=== PATIENT | male | born 1980 | race Caucasian/White ===

== ENCOUNTER 2018-09-22 16:44 | Outpatient (REF) | payer OTHER, SELFPAY ==
[2018-09-22 21:37] LABS: Anion Gap 12.3 mmol/L (3-11); BUN 12 mg/dL (7-18); CO2 25.7 mmol/L (21.0-32.0); CREATININE 0.83 mg/dL (0.70-1.30); Calcium 9.6 mg/dL (8.5-10.1); Chloride 101 mmol/L (98-107); Glucose 154 mg/dL (70-100); Potassium 3.9 mmol/L (3.5-5.1); Sodium 139 mmol/L (136-145)
== END 2018-09-22 17:04 ==
LOC: NCHCN 16:44
PROVIDERS: PCP Family Medicine; Visit Provider Family Medicine
DX: I10 Essential (primary) hypertension (principal)
CPT/HCPCS: 80048

== ENCOUNTER 2019-01-16 09:06 | Outpatient (CLI) | payer OTHER, SELFPAY ==
--- NOTE | 2019-01-16 16:45 | DIABASSESS_ITS ---
DESCRIPTION: Neo Espinosa presents for diabetes self management. He states he has not had self management education in the past; has had diabetes since age of 23. He wishes to eat better and improve his A1c. MEDICATION: Manages with Metformin 2000mg, and Glipizide 10mg which was added 1 month ago. MONITORING: he tests his blood sugars most mornings and occasionally in evening. [id number] and pre-supper 183. He believes his blood sugars are improving since addition of glipizide. 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 He eats supper with his family; last night BBQ chicken with spaghetti salad. He has fruit cup and trail mix between meals. PHYSICAL ACTIVITY: He goes to the gym 2-3 times a week. He has days when he walks and days he is behind the desk. He works 10-14 hour days frequently. STRESS: He admits to high stress and depression. He has asked for help through the clinic and local Mental Health agency, but he has not been able to get to see anyone. He expresses high frustration from this. His states his depression is affecting him daily. INTERVENTION: Neo is here for a basic visit despite his long history of type 2 diabetes at an unusually young age. NUTRITION: Reviewed food guide focused on non-carbohydrate sources, especially vegetables. Discussed portions of carbohydrate sources. He denies frequent hunger. He is aware of foods that increase his blood sugar. PHYSICAL ACTIVITY: encouraged regular PA that he could encorporate in his daily work schedule with goal of 20minutes daily if he doesn't get to the gym. MEDICATION: Reviewed additional oral medications actions, benefits and side effects in addition to insulin if blood sugars are not improved with current regimen. He voices interest in the [id number] (Jardiance) for weight management, blood pressure and blood sugar reduction. He is open to insulin if there is nothing else. STRESS: Discussed sourcing support. Discussed deep breathing as an immediate reliever on the job which he already does. Encouraged him to follow up regarding appointments for support. States there are no private therapists who take his insurance. PREVENTION: Brief review of foot care which he is well informed about. Discussed hypoglycemia risk with new medication; symptoms and treatment. PLAN: He will focus on non-carbohydrate sources of calories with increased vegetables exercise 20 minutes/day consider addition of medication with interest in SGLT2 inhibitor if blood sugars not improved He will pursue efforts to obtain help for depression.
== END 2019-01-16 09:26 ==
PROVIDERS: PCP Family Medicine; Visit Provider Dietitian, Registered
DX: E11.9 Type 2 diabetes mellitus without complications (principal); Z71.3 Dietary counseling and surveillance
CPT/HCPCS: G0108

== ENCOUNTER 2019-07-05 16:32 | Outpatient (REF) | payer OTHER, SELFPAY ==
[2019-07-05 22:01] LABS: ALT 105 U/L (16-63); AST 35 U/L (15-37); Albumin 4.4 g/dL (3.4-5.0); Alkaline Phosphatase 46 U/L (46-116); Anion Gap 11.3 mmol/L (3-11); BUN 12 mg/dL (7-18); Bilirubin, Total 1.5 mg/dL (0.2-1.0); CO2 27.7 mmol/L (21.0-32.0); CREATININE 0.79 mg/dL (0.70-1.30); Calcium 9.2 mg/dL (8.5-10.1); Calculated LDL 61 mg/dL (<100); Chloride 102 mmol/L (98-107); Cholesterol 164 mg/dL (<200); Glucose 158 mg/dL (74-106); HDL Cholesterol 35 mg/dL (40-60); Potassium 3.9 mmol/L (3.5-5.1); Sodium 141 mmol/L (136-145); Total Protein 7.5 g/dL (6.4-8.2); Triglyceride 341 mg/dL (<150)
[2019-07-09 10:42] LABS: HIV-1/2 Ag & Ab Screen Negative (Negative)
[2019-07-09 11:20] LABS: HBs Antibody, Qual Negative (See Note); HBs Antibody, Quant <3.1 mIU/mL (See Note); Hepatitis B Core Antibody Negative (Negative); Hepatitis B surface Ag Negative (Negative); Hepatitis C Ab w Rflx HCV PCR Negative (Negative)
[2019-07-09 13:33] LABS: Syphilis Serology (RPR) Negative (Negative)
== END 2019-07-05 16:52 ==
LOC: NCHCN 16:32
PROVIDERS: PCP Family Medicine; Visit Provider Nurse Practitioner Family
DX: E78.5 Hyperlipidemia, unspecified (principal); I10 Essential (primary) hypertension; Z20.2 Contact with and (suspected) exposure to infections with a predominantly sexual mode of transmission; Z11.3 Encounter for screening for infections with a predominantly sexual mode of transmission; Z11.4 Encounter for screening for human immunodeficiency virus [HIV]
CPT/HCPCS: 80053; 80061; 86704; 86706; 86803; 87340; 87389; 86592

== ENCOUNTER 2019-07-17 08:45 | Outpatient (REF) | payer OTHER, SELFPAY ==
[2019-07-17 22:21] LABS: COMMENT (LAB VIEW ONLY) 97.06 mg/dL; Microalb ug/mg Crea 22.4 ug/mg Cr
== END 2019-07-17 09:05 ==
LOC: NCHCN 08:45
PROVIDERS: PCP Family Medicine; Visit Provider Nurse Practitioner Family
DX: E11.65 Type 2 diabetes mellitus with hyperglycemia (principal)
CPT/HCPCS: 82043; 82570

== ENCOUNTER → 2019-11-06 09:38 | Outpatient (REF) | payer OTHER, SELFPAY ==
[2019-11-06 21:27] LABS: ALT 153 U/L (16-63); AST 55 U/L (15-37); Albumin 4.3 g/dL (3.4-5.0); Alkaline Phosphatase 41 U/L (46-116); Anion Gap 12.4 mmol/L (3-11); BUN 10 mg/dL (7-18); Bilirubin, Total 1.8 mg/dL (0.2-1.0); CO2 24.6 mmol/L (21.0-32.0); CREATININE 0.93 mg/dL (0.70-1.30); Calcium 8.8 mg/dL (8.5-10.1); Chloride 104 mmol/L (98-107); Glucose 212 mg/dL (74-106); Potassium 3.9 mmol/L (3.5-5.1); Sodium 141 mmol/L (136-145); Total Protein 7.4 g/dL (6.4-8.2)
== END ==
LOC: NCHCN 09:38
PROVIDERS: PCP Family Medicine; Visit Provider Nurse Practitioner Family
DX: E11.65 Type 2 diabetes mellitus with hyperglycemia (principal); K76.0 Fatty (change of) liver, not elsewhere classified
CPT/HCPCS: 80053

== ENCOUNTER 2019-12-19 12:45 | Outpatient (REF) | payer OTHER, SELFPAY ==
[2019-12-19 21:10] LABS: ALT 138 U/L (16-63); AST 59 U/L (15-37); Albumin 4.2 g/dL (3.4-5.0); Alkaline Phosphatase 39 U/L (46-116); Anion Gap 11.8 mmol/L (3-11); BUN 8 mg/dL (7-18); Bilirubin, Total 1.8 mg/dL (0.2-1.0); CO2 26.2 mmol/L (21.0-32.0); CREATININE 0.83 mg/dL (0.70-1.30); Calcium 9.1 mg/dL (8.5-10.1); Chloride 101 mmol/L (98-107); Folate 16.7 ng/mL (8.6-20.0); Glucose 224 mg/dL (74-106); Potassium 3.9 mmol/L (3.5-5.1); Sodium 139 mmol/L (136-145); TSH (W/Ref FT4) 1.39 uIU/mL (0.36-3.74); Total Protein 7.2 g/dL (6.4-8.2); Vitamin B12 761 pg/mL (193-986)
[2019-12-21 08:20] LABS: HBs Antibody, Quant <3.1 mIU/mL (See Note); Hepatitis B Surface Ab Negative (See Note)
[2019-12-21 08:28] LABS: Hepatitis B Surface Ag Negative (Negative)
[2019-12-21 09:06] LABS: HIV-1/2 Ag & Ab Screen Negative (Negative)
[2019-12-21 09:31] LABS: Hepatitis C Ab w Rflx HCV PCR Negative (Negative)
[2019-12-21 10:48] LABS: Syphilis Serology (RPR) Negative (Negative)
[2019-12-21 15:28] LABS: Chlamydia Result Negative (Negative); GC Result Negative (Negative)
== END 2019-12-19 13:05 ==
LOC: NCHCN 12:45
PROVIDERS: PCP Family Medicine; Visit Provider Nurse Practitioner Family
DX: Z11.3 Encounter for screening for infections with a predominantly sexual mode of transmission (principal); E11.65 Type 2 diabetes mellitus with hyperglycemia; G62.9 Polyneuropathy, unspecified; K76.0 Fatty (change of) liver, not elsewhere classified
CPT/HCPCS: 80053; 86706; 86803; 87340; 87389; 87491; 87591; 82607; 82746; 84443; 86592

== ENCOUNTER 2020-01-02 09:40 | Outpatient (REF) | payer OTHER, SELFPAY ==
[2020-01-02 20:04] LABS: Anion Gap 11.1 mmol/L (3-11); BUN 17 mg/dL (7-18); CO2 26.9 mmol/L (21.0-32.0); CREATININE 0.81 mg/dL (0.70-1.30); Calcium 9.5 mg/dL (8.5-10.1); Chloride 100 mmol/L (98-107); Glucose 177 mg/dL (74-106); Potassium 3.8 mmol/L (3.5-5.1); Sodium 138 mmol/L (136-145)
== END 2020-01-02 10:00 ==
LOC: NCHCN 09:40
PROVIDERS: PCP Family Medicine; Visit Provider Nurse Practitioner Family
DX: E11.65 Type 2 diabetes mellitus with hyperglycemia (principal); I10 Essential (primary) hypertension
CPT/HCPCS: 80048

== ENCOUNTER 2020-07-24 09:19 | Outpatient (REF) | payer OTHER, SELFPAY ==
[2020-07-24 14:32] LABS: ALT 150 U/L (16-63); AST 54 U/L (15-37); Albumin 4.4 g/dL (3.4-5.0); Alkaline Phosphatase 44 U/L (46-116); Anion Gap 12.6 mmol/L (3-11); BUN 13 mg/dL (7-18); Bilirubin, Total 1.6 mg/dL (0.2-1.0); CO2 26.4 mmol/L (21.0-32.0); CREATININE 0.8 mg/dL (0.70-1.30); Calcium 9.4 mg/dL (8.5-10.1); Calculated LDL 62 mg/dL (<100); Chloride 99 mmol/L (98-107); Cholesterol 145 mg/dL (<200); Glucose 270 mg/dL (74-106); HDL Cholesterol 36 mg/dL (40-60); Potassium 4.3 mmol/L (3.5-5.1); Sodium 138 mmol/L (136-145); Total Protein 7.6 g/dL (6.4-8.2); Triglyceride 238 mg/dL (<150)
[2020-07-24 14:33] LABS: COMMENT (LAB VIEW ONLY) 93.56 mg/dL; Microalb ug/mg Crea 46.9 ug/mg Cr
== END 2020-07-24 09:20 | disposition home or self-care (01) ==
LOC: NCHCN 09:19
PROVIDERS: PCP Family Medicine; Visit Provider Nurse Practitioner Family
DX: E11.65 Type 2 diabetes mellitus with hyperglycemia (principal)
CPT/HCPCS: 80053; 80061; 82043; 82570

== ENCOUNTER 2020-08-25 08:58 | Outpatient (REF) | payer OTHER, SELFPAY ==
[2020-08-25 13:01] LABS: HCT 40.9 % (40.0-50.0); HGB 14.2 g/dL (13.5-17.5); MCH 29.1 pg (27.0-33.0); MCHC 34.7 % (32.0-36.0); MCV 83.8 fL (80-95); MPV 9.9 fL (8.0-11.0); Platelet Count 311 10^3/uL (130-400); RBC 4.88 10^6/uL (4.36-5.78); RDW 12.1 % (11.8-14.1); RDW-SD 36.8 fL; WBC 6.86 10^3/uL (4.4-10.8)
[2020-08-25 13:52] LABS: ALT 120 U/L (16-63); AST 37 U/L (15-37); Albumin 4.3 g/dL (3.4-5.0); Alkaline Phosphatase 44 U/L (46-116); Bilirubin, Total 1.9 mg/dL (0.2-1.0); TSH (W/Ref FT4) 0.85 uIU/mL (0.36-3.74); Total Protein 7.6 g/dL (6.4-8.2)
[2020-08-25 14:00] LABS: Bilirubin, Direct 0.3 mg/dL (0.0-0.2); Lipase 138 U/L (73-393)
== END 2020-08-25 08:59 | disposition home or self-care (01) ==
LOC: NCHCN 08:58
PROVIDERS: PCP Family Medicine; Visit Provider Nurse Practitioner Family
DX: R53.83 Other fatigue (principal); R10.9 Unspecified abdominal pain; R94.5 Abnormal results of liver function studies
CPT/HCPCS: 80076; 83690; 85027; 84443

== ENCOUNTER 2020-12-11 16:16 | Outpatient (REF) | payer OTHER, SELFPAY ==
[2020-12-13 09:34] LABS: HIV-1/2 Ag & Ab Screen Negative (Negative)
[2020-12-15 10:15] LABS: Hepatitis C Ab w Rflx HCV PCR Negative (Negative)
[2020-12-15 11:01] LABS: Syphilis Serology (RPR) Negative (Negative)
[2020-12-15 14:05] LABS: Chlamydia Result Negative (Negative); GC Result Negative (Negative)
[2020-12-16 00:40] LABS: T.vaginalis, Misc, RNA Negative (Negative)
== END 2020-12-11 16:17 | disposition home or self-care (01) ==
LOC: NCHCN 16:16
PROVIDERS: PCP Family Medicine; Visit Provider Nurse Practitioner Family
DX: Z11.3 Encounter for screening for infections with a predominantly sexual mode of transmission (principal); Z13.818 Encounter for screening for other digestive system disorders; Z11.4 Encounter for screening for human immunodeficiency virus [HIV]
CPT/HCPCS: 86803; 87389; 87491; 87591; 87661; 86592

== ENCOUNTER 2021-08-05 18:20 | Outpatient (REF) | payer OTHER, SELFPAY ==
[2021-08-05 21:09] LABS: ALT 72 U/L (16-63); AST 28 U/L (15-37); Albumin 4.3 g/dL (3.4-5.0); Alkaline Phosphatase 49 U/L (46-116); Anion Gap 11.5 mmol/L (3-11); BUN 13 mg/dL (7-18); Bilirubin, Total 1.4 mg/dL (0.2-1.0); CO2 25.5 mmol/L (21.0-32.0); CREATININE 0.9 mg/dL (0.70-1.30); Calculated LDL 111 mg/dL (<100); Chloride 100 mmol/L (98-107); Cholesterol 187 mg/dL (<200); Glucose 189 mg/dL (74-106); HDL Cholesterol 40 mg/dL (40-60); Potassium 3.5 mmol/L (3.5-5.1); Sodium 137 mmol/L (136-145); Total Protein 7.5 g/dL (6.4-8.2); Triglyceride 184 mg/dL (<150)
[2021-08-05 21:18] LABS: Hemoglobin A1C 7.3 % (<5.7)
[2021-08-05 21:25] LABS: COMMENT (LAB VIEW ONLY) 18.87 mg/dL; Microalb ug/mg Crea 39.2 ug/mg Cr
== END 2021-08-05 18:21 | disposition home or self-care (01) ==
LOC: NCHCN 18:20
PROVIDERS: PCP Family Medicine; Visit Provider Registered Nurse
DX: E11.65 Type 2 diabetes mellitus with hyperglycemia (principal); I10 Essential (primary) hypertension; E66.9 Obesity, unspecified
CPT/HCPCS: 80053; 80061; 82043; 82570; 83036

== ENCOUNTER 2021-10-22 10:05 | Outpatient (REF) | payer OTHER, SELFPAY ==
[2021-10-22 14:40] LABS: Bacteria Negative HPF (Negative); C & S Indicated? No; Casts Negative LPF (Negative); Crystals Negative HPF (Negative); Epithelial Cells Rare HPF (Negative); Mucus Negative (Negative); RBC 0-2 HPF (0-2); WBC 0-2 HPF (0-5)
[2021-10-23 14:32] LABS: Chlamydia Result Negative (Negative); GC Result Negative (Negative)
== END 2021-10-22 10:06 | disposition home or self-care (01) ==
LOC: NCHCN 10:05
PROVIDERS: PCP Family Medicine; Visit Provider Nurse Practitioner Family
DX: R30.0 Dysuria (principal); Z11.3 Encounter for screening for infections with a predominantly sexual mode of transmission
CPT/HCPCS: 87491; 87591; 81015

== ENCOUNTER 2023-01-07 08:28 | Outpatient (REF) | payer BC, SELFPAY ==
[2023-01-06 16:39] LABS: COMMENT (LAB VIEW ONLY) 80.84 mg/dL; Microalb ug/mg Crea 79.3 ug/mg Cr
[2023-01-06 16:53] LABS: ALT 96 U/L (16-63); AST 40 U/L (15-37); Albumin 4.7 g/dL (3.4-5.0); Alkaline Phosphatase 55 U/L (46-116); Anion Gap 12.1 mmol/L (3-11); BUN 13 mg/dL (7-18); Bilirubin, Total 1.5 mg/dL (0.2-1.0); CO2 24.9 mmol/L (21.0-32.0); CREATININE 1.1 mg/dL (0.70-1.30); Calcium 9.6 mg/dL (8.5-10.1); Calculated LDL 113 mg/dL (<100); Chloride 98 mmol/L (98-107); Cholesterol 226 mg/dL (<200); Estimated GFR 84.89 (mL/min/1.73m2); Glucose 350 mg/dL (74-106); HDL Cholesterol 36 mg/dL (40-60); Potassium 4.1 mmol/L (3.5-5.1); Sodium 135 mmol/L (136-145); Total Protein 8.6 g/dL (6.4-8.2); Triglyceride 388 mg/dL (<150)
== END 2023-01-07 08:29 | disposition home or self-care (01) ==
LOC: NCHCN 08:28
PROVIDERS: PCP Family Medicine; Visit Provider Family Medicine
DX: I10 Essential (primary) hypertension (principal); E78.5 Hyperlipidemia, unspecified; E66.9 Obesity, unspecified; E11.65 Type 2 diabetes mellitus with hyperglycemia
CPT/HCPCS: 80053; 80061; 82043; 82570

== ENCOUNTER 2023-01-12 17:18 | Outpatient (REF) | payer BC, SELFPAY ==
[2023-01-12 16:36] LABS: Abs Immature Grans 0.04 10^3/uL (0.0-0.06); Absolute Basophil Count 0.06 10^3/uL (0.0-0.2); Absolute Eosinophil Count 0.11 10^3/uL (0.0-0.7); Absolute Lymphocyte Count 1.77 10^3/uL (1.2-3.4); Absolute Monocyte Count 0.35 10^3/uL (0.1-0.8); Absolute Neutrophil Count 3.23 10^3/uL (1.2-6.7); Basophils % 1.1; HCT 41.6 % (40.0-50.0); HGB 14.6 g/dL (13.5-17.5); Immature Grans % 0.7; Lymphocytes % 31.8; MCH 29.1 pg (27.0-33.0); MCHC 35.1 % (32.0-36.0); MCV 83 fL (80-95); MPV 10.1 fL (8.0-11.0); Monocytes % 6.3; Neutrophils % 58.1; Platelet Count 323 10^3/uL (130-400); RBC 5.02 10^6/uL (4.36-5.78); RDW 12.6 % (11.8-14.1); WBC 5.56 10^3/uL (4.4-10.8)
[2023-01-12 17:36] LABS: Ferritin 189 ng/mL (26-388)
[2023-01-12 17:41] LABS: Iron 91 ug/dL (65-175); Total Iron Binding Capacity 371 ug/dL (250-450); Transferrin Sat 25 % (20-55)
== END 2023-01-12 17:19 | disposition home or self-care (01) ==
LOC: NCHCN 17:18
PROVIDERS: PCP Family Medicine; Visit Provider Family Medicine
DX: R79.89 Other specified abnormal findings of blood chemistry (principal); K76.0 Fatty (change of) liver, not elsewhere classified
CPT/HCPCS: 82728; 83540; 83550; 85025

== ENCOUNTER 2023-08-11 19:29 | Outpatient (REF) | payer BC, SELFPAY ==
[2023-08-11 15:30] LABS: ALT 52 U/L (16-63); AST 34 U/L (15-37); Albumin 4.5 g/dL (3.4-5.0); Alkaline Phosphatase 47 U/L (46-116); Anion Gap 14.4 mmol/L (3-11); BUN 20 mg/dL (7-18); Bilirubin, Total 1.5 mg/dL (0.2-1.0); CO2 24.6 mmol/L (21.0-32.0); CREATININE 0.9 mg/dL (0.70-1.30); Chloride 102 mmol/L (98-107); Estimated GFR 108.01 (mL/min/1.73m2); Glucose 202 mg/dL (74-106); Hemoglobin A1C 10.4 % (<5.7); Sodium 141 mmol/L (136-145)
== END 2023-08-11 19:30 | disposition home or self-care (01) ==
LOC: NCHCN 19:29
PROVIDERS: PCP Family Medicine; Referring Provider Family Medicine; Visit Provider Family Medicine
DX: E11.65 Type 2 diabetes mellitus with hyperglycemia (principal); K76.0 Fatty (change of) liver, not elsewhere classified; R17 Unspecified jaundice
CPT/HCPCS: 80053; 83036

== ENCOUNTER 2023-09-06 08:48 | Outpatient (REF) | payer BC, SELFPAY ==
[2023-09-06 15:21] LABS: Bilirubin, Direct 0.2 mg/dL (0.0-0.2)
== END 2023-09-06 08:49 | disposition home or self-care (01) ==
LOC: NCHCN 08:48
PROVIDERS: PCP Family Medicine; Visit Provider Family Medicine
DX: R17 Unspecified jaundice (principal); E80.6 Other disorders of bilirubin metabolism
CPT/HCPCS: 82248

== ENCOUNTER 2024-02-17 15:16 | Outpatient (REF) | payer BC, SELFPAY ==
[2024-02-17 21:37] LABS: Abs Immature Grans 0.03 10^3/uL (0.0-0.06); Absolute Basophil Count 0.08 10^3/uL (0.0-0.2); Absolute Eosinophil Count 0.09 10^3/uL (0.0-0.7); Absolute Lymphocyte Count 2.15 10^3/uL (1.2-3.4); Absolute Monocyte Count 0.37 10^3/uL (0.1-0.8); Absolute Neutrophil Count 3.75 10^3/uL (1.2-6.7); Basophils % 1.2 %; Eosinophils % 1.4 %; HGB 14.8 g/dL (13.5-17.5); Immature Grans % 0.5 %; Lymphocytes % 33.2 %; MCH 28.7 pg (27.0-33.0); MCHC 34.4 % (32.0-36.0); MCV 83 fL (80-95); MPV 9.5 fL (8.0-11.0); Monocytes % 5.7 %; Platelet Count 330 10^3/uL (130-400); RBC 5.16 10^6/uL (4.36-5.78); RDW 12.7 % (11.8-14.1); RDW-SD 38.4 fL; WBC 6.47 10^3/uL (4.4-10.8)
[2024-02-17 21:57] LABS: Hemoglobin A1C 9.3 % (<5.7)
[2024-02-17 22:13] LABS: ALT 45 U/L (16-63); AST 26 U/L (15-37); Alkaline Phosphatase 54 U/L (46-116); BUN 18 mg/dL (7-18); Bilirubin, Total 1.88 mg/dL (0.2-1.0); Calcium 9.9 mg/dL (8.5-10.1); Chloride 100 mmol/L (98-107); Estimated GFR 94.59 (mL/min/1.73m2); Glucose 148 mg/dL (74-106); Potassium 3.8 mmol/L (3.5-5.1); Sodium 139 mmol/L (136-145); TSH (W/Ref FT4) 1.25 uIU/mL (0.36-3.74); Total Protein 8.7 g/dL (6.4-8.2); Vitamin D 25 Total 19.5 ng/mL (30-100)
[2024-02-20 10:47] LABS: Lyme Ab w Rflx to Lyme Confirm Negative (Negative)
[2024-02-21 20:12] LABS: Anaplasma phagocytophilum Negative (Negative); B. miyamotoi PCR Negative (Negative); Babesia divergens/MO-1 Negative (Negative); Babesia duncani Negative (Negative); Babesia microti Negative (Negative); Ehrlichia chaffeensis Negative (Negative); Ehrlichia ewingii/canis Negative (Negative); Ehrlichia muris eauclairensis Negative (Negative)
== END 2024-02-17 15:17 | disposition home or self-care (01) ==
LOC: NCHCN 15:16
PROVIDERS: PCP Family Medicine; Visit Provider Family Medicine
DX: M25.59 Pain in other specified joint (principal); R53.83 Other fatigue; E11.65 Type 2 diabetes mellitus with hyperglycemia
CPT/HCPCS: 80053; 82306; 87798; 83036; 84443; 85025; 86618

== ENCOUNTER 2024-02-23 13:38 | Outpatient (REF) | payer BC, SELFPAY ==
[2024-02-23 16:07] LABS: Cholesterol 144 mg/dL (<200); HDL Cholesterol 40 mg/dL (40-60)
[2024-02-23 16:18] LABS: Calculated LDL 62 mg/dL (<100); Triglyceride 210 mg/dL (<150)
[2024-02-23 21:29] LABS: COMMENT (LAB VIEW ONLY) 35.01 mg/dL; Microalb ug/mg Crea 38.6 ug/mg Cr
== END 2024-02-23 13:39 | disposition home or self-care (01) ==
LOC: NCHCN 13:38
PROVIDERS: PCP Family Medicine; Visit Provider Family Medicine
DX: E78.5 Hyperlipidemia, unspecified (principal); E11.65 Type 2 diabetes mellitus with hyperglycemia
CPT/HCPCS: 80061; 82043; 82570